=== PATIENT | male | born 1940 | race Caucasian/White ===

== ENCOUNTER 2017-08-21 10:29 | Outpatient (CLI) | payer MEDICARE, MEDICAID ==
[2017-08-21 12:02] LABS: #Basophils 0.1 thou/uL (0.0-0.2); #Monocytes 0.8 thou/uL (0.11-0.59); #Neutrophils 6.2 thou/uL (1.40-6.50); %Basophils 0.7 % (0.0-1.0); %Eosinophils 9.8 % (0.0-10.0); %Monocytes 7.9 % (0.0-10.0); %Neutrophils 61.6 % (42.0-75.0); Hemoglobin 14.4 g/dL (14.0-18.0); Mean Corpuscular HGB CONC 32.1 g/dL (32.0-36.0); Mean Corpuscular Hemoglobin 29.3 pg (27.0-31.0); Mean Corpuscular Volume 91.2 fl (80.0-94.0); Mean Platelet Volume 7.7 fL (7.4-10.4); Platelet Count 219 thou/uL (130-400); RBC Distribution Width 14.9 % (11.5-14.5); Red Blood Cell (RBC) Count 4.91 mill/uL (4.70-6.10)
[2017-08-21 12:22] LABS: Anion Gap 16 mmol/L (10-20); BUN (Urea Nitrogen) 37 mg/dL (8.4-25.7); Calc. Creatinine Clearance 0 mL/min (70-130); Calcium 9.9 mg/dL (7.8-10.44); Carbon Dioxide 24 mmol/L (23-31); Chloride 103 mmol/L (98-107); Estimated GFR-MDRD 52; Glucose 103 mg/dL (83-110); Potassium 5.1 mmol/L (3.5-5.1); Sodium 138 mmol/L (136-145)
== END 2017-08-21 10:30 | disposition home or self-care (01) ==
LOC: LABBT 10:29
PROVIDERS: ATTEND Urology
DX: Z01.812 Encounter for preprocedural laboratory examination (principal); R33.9 Retention of urine, unspecified
CPT/HCPCS: 80048; 85025

== ENCOUNTER 2017-08-29 05:30 | Observation (INO) | payer MEDICARE, MEDICAID ==
[2017-08-21 11:13] VITALS: BMI 27.2
[2017-08-29] MEDS ORDERED: cefOXitin 2 GM VIAL ONE (05:55)
[2017-08-29] MEDS ORDERED: cefOXitin 2 GM in Sodium Chloride 0.9% 100 ML IVPB SCH (06:00)
[2017-08-29] MEDS ORDERED: Fentanyl 100 MCG/2 ML VIAL ONE ×2 (06:46→10:58)
[2017-08-29] MEDS ORDERED: Dexamethasone 4 mg/ml Vial ONE (07:08)
[2017-08-29] MEDS ORDERED: B & O ONE (07:22)
[2017-08-29] MEDS ORDERED: Furosemide 20 MG/2 ML VIAL ONE (07:22)
[2017-08-29] MEDS ORDERED: Ondansetron HCl/PF 4 MG/2 ML Vial IVP PRN ×2 (11:21→12:15)
[2017-08-29] MEDS ORDERED: diphenhydrAMINE 50 MG in Sodium Chloride 0.9% 50 ML IVPB PRN (11:21)
[2017-08-29] MEDS ORDERED: Metoclopramide HCl 10 MG/2 ML VIAL IVP PRN (11:21)
[2017-08-29] MEDS ORDERED: Acetaminophen 500 MG TAB PO PRN (11:22)
[2017-08-29] MEDS ORDERED: Insulin Regular 300 UNITS/3 ML VIAL SC ONE (11:31)
[2017-08-29] MEDS ORDERED: Amlodipine 5 MG TAB PO SCH (11:45)
[2017-08-29] MEDS ORDERED: Promethazine HCl 25 MG/ML VIAL SLOW IVP PRN (12:15)
[2017-08-29] MEDS ORDERED: Promethazine HCl 25 MG/ML VIAL IM PRN (12:15)
[2017-08-29] MEDS ORDERED: PROPOFOL 200 MG/20 ML VIAL ONE (13:59)
[2017-08-29] MEDS ORDERED: Lidocaine 1% PF 5 ML VIAL ONE (13:59)
[2017-08-29] MEDS ORDERED: PHENYLEPHRINE-NS 100 MCG/ML 10 ML SYRINGE ONE (13:59)
--- NOTE | 2017-08-29 14:13 | OP ---
DATE OF SERVICE: 08/29/2017 PREOPERATIVE DIAGNOSES: Benign prostatic hypertrophy and retention status post SP tube for a prolonged period of time. POSTOPERATIVE DIAGNOSES: Benign prostatic hypertrophy and retention status post SP tube for a prolonged period of time. PROCEDURE: GreenLight laser vaporization of the prostate with enucleation of the lateral and middle lobes total of 556, 429 joules used. SPECIMENS: Prostate. COMPLICATIONS: None. However, the prostate was significantly larger than anticipated. ESTIMATED BLOOD LOSS: Minimal. COMPLICATIONS: None. DRAINS: Drain remaining was a 20 Scottish in addition to a 20 Scottish SP tube. INDICATIONS: The patient is a 77-year-old male who had SP tube for a couple years, but never had any definitive intervention for his prostate and after office cystoscopy revealing a very obstructive gland, we discussed the possibility of GreenLight in hopes that he would be able to void and ultimately remove the SP tube and so he was set up for this. PROCEDURE IN DETAIL: The patient was brought into the room by Anesthesia. Laid on the table in the supine position. After receiving general anesthetic, his legs placed in lithotomy position. Perineum was prepped and draped in sterile fashion. Prior to this, the SP tube was changed under sterile conditions from a 20 Scottish 30 mL to a 20 Scottish 5 mL catheter then a 22.5 Scottish cystoscope and 30-degree lens were used. The bladder was inspected. Initially, the ureteral orifices could not be seen without significant investigation. After further manipulation of the obstructing middle lobe, the right UO was noted. I did not see the left until midway through the case, at which time it was preserved and not anywhere in the line of resection, but the middle lobe was very elevated, not as much beyond the UO's as deep at the bladder neck, so care was taken at a power of 80 to enucleate this whole portion which was tedious given that it was intravesical. Then, once this was taken down, the power of 180 was used at the mid gland and taken all the way down to the just before the veru. However, the gland was quite tall or long from AP diameter and when the scope was removed a good stream was not noted; this seemed to be because the more anterior portions of the gland were still significantly obstructing and not easily noted initially. So a resection of these portions was then performed. There were significant chips all throughout this and the [place] [employer] evacuator was used to remove them and clot. The maximum fiber life was reached so another second fiber was used and at this point it was approaching 3 hours of resection. I felt this was probably the most that he should undergo from just general safety standpoint; clearly, a significant amount of prostate had been resected, but I never did see a good stream. The scope was put back in the bladder decompressed. Hemostasis was attempted. There was just general ooze. There was no definitive bleeder as all of these had already been stopped so at this point, the scope was removed after ensuring all chips and clot were out and a 20 Scottish catheter was placed to gravity and the CBI was hooked up to the SP tube. The patient tolerated procedure well and was then awakened and transferred to PACU in stable condition. NEREIDA
[2017-08-29] MEDS: D5 1/2 NS w/10 mEq KCl 1,000 ML/1,000 ML BAG IV SCH ×2 (15:40→22:53)
[2017-08-29] MEDS: Heparin 5,000 UNITS/ML VIAL SC SCH ×2 (16:37→21:39)
[2017-08-29] MEDS: cefOXitin 2 GM in Sodium Chloride 0.9% 100 ML IVPB SCH (21:22)
[2017-08-29] MEDS: Tamsulosin HCl 0.4 MG CAP PO SCH (21:23)
[2017-08-29] MEDS: Docusate 100 MG CAP PO SCH (21:23)
[2017-08-29] MEDS: metFORMIN XR 500 MG TAB PO SCH (21:23)
[2017-08-29] MEDS: Famotidine/PF 20 mg/2ml Vial SLOW IVP SCH (22:53)
[2017-08-30] MEDS ORDERED: Levothyroxine Sodium 100 MCG TAB PO SCH (06:00)
[2017-08-30] MEDS ORDERED: Glimepiride 1 MG TAB PO SCH (08:00)
[2017-08-30] MEDS: Tamsulosin HCl 0.4 MG CAP PO SCH (08:47)
[2017-08-30] MEDS: Famotidine/PF 20 mg/2ml Vial SLOW IVP SCH (08:47)
[2017-08-30] MEDS: metFORMIN XR 500 MG TAB PO SCH (08:48)
[2017-08-30] MEDS: Docusate 100 MG CAP PO SCH (08:48)
[2017-08-30] MEDS: Heparin 5,000 UNITS/ML VIAL SC SCH ×2 (08:48→15:14)
[2017-08-30] MEDS: cefOXitin 2 GM in Sodium Chloride 0.9% 100 ML IVPB SCH (08:49)
[2017-08-30] MEDS ORDERED: Gabapentin 300 MG CAP PO SCH (09:00)
[2017-08-30] MEDS ORDERED: Furosemide 20 MG TAB PO SCH (09:00)
[2017-08-30] MEDS ORDERED: Lisinopril 10 MG TAB PO SCH (09:00)
[2017-08-30] MEDS ORDERED: Finasteride 5 MG TAB PO SCH (09:00)
[2017-08-30 11:59] VITALS: BP 119/68; TEMP 98.4
[2017-08-30] MEDS: D5 1/2 NS w/10 mEq KCl 1,000 ML/1,000 ML BAG IV SCH (13:38)
== END 2017-08-30 15:30 ==
LOC: EDBD 05:30 → SDC 05:30 → SURG B 11:15
PROVIDERS: ADMIT Urology; ATTEND Urology
PROC: 0V507ZZ Destruction of Prostate, Via Natural or Artificial Opening (ICD-10-PCS; principal; 2017-08-29)
DX: N40.1 Benign prostatic hyperplasia with lower urinary tract symptoms (principal); R33.8 Other retention of urine; N31.9 Neuromuscular dysfunction of bladder, unspecified; N30.00 Acute cystitis without hematuria; N41.0 Acute prostatitis; K21.9 Gastro-esophageal reflux disease without esophagitis; I10 Essential (primary) hypertension; M10.9 Gout, unspecified; E11.649 Type 2 diabetes mellitus with hypoglycemia without coma; E55.9 Vitamin D deficiency, unspecified; F32.9 Major depressive disorder, single episode, unspecified; M06.9 Rheumatoid arthritis, unspecified; E03.9 Hypothyroidism, unspecified; Z79.82 Long term (current) use of aspirin; Z79.52 Long term (current) use of systemic steroids; Z79.899 Other long term (current) drug therapy; Z87.891 Personal history of nicotine dependence
CPT/HCPCS: 52648; 82962 ×2; 88305; 96361 ×2; 96365; 96375; 96376; G0378; 36416; J0694; J1100; J1644; J1940; J2001; J2704; J3010; J7050; S0028

== ENCOUNTER 2018-10-12 08:32 | Day surgery (SDC) | payer MEDICARE ==
[2018-10-11 14:38] VITALS: BMI 26.4
[2018-10-12 08:58] LABS: #Basophils 0.1 thou/uL (0.0-0.2); #Eosinphils 0.3 thou/uL (0.0-0.7); #Monocytes 0.8 thou/uL (0.11-0.59); #Neutrophils 5.7 thou/uL (1.40-6.50); %Basophils 0.7 % (0.0-1.0); %Eosinophils 3.1 % (0.0-10.0); %Lymphocytes 30.7 % (21.0-51.0); %Neutrophils 57.5 % (42.0-75.0); Hemoglobin 13.4 g/dL (14.0-18.0); Mean Corpuscular HGB CONC 32.7 g/dL (32.0-36.0); Mean Corpuscular Hemoglobin 31.6 pg (27.0-31.0); Mean Corpuscular Volume 96.6 fL (78.0-98.0); Mean Platelet Volume 7.4 fL (7.4-10.4); Platelet Count 226 thou/uL (130-400); RBC Distribution Width 13.2 % (11.5-14.5); Red Blood Cell (RBC) Count 4.24 mill/uL (4.70-6.10); White Blood Cell (WBC) Count 9.9 thou/uL (4.8-10.8)
[2018-10-12 09:04] LABS: INR-International Normal Ratio 0.9; PTT 33.9 SEC (22.9-36.1); Prothrombin Time 12.1 SEC (12.0-14.7)
--- NOTE | 2018-10-12 11:49 | CT ---
CT-guided suprapubic catheter placement Conscious sedation: At least 45 minutes spent with the patient during procedure for conscious sedatio n. HISTORY: Urinary retention. FINDINGS: After explaining the procedure and answering all questions, CT images of the pelvis were pe rformed. Sterile technique, buffered local anesthesia, conscious sedation, CT guidance, and an anterior midlin e suprapubic approach were used to carefully advance a 14 [place] Whitt catheter into the urinary bladder using trocar technique. Clear yellow urine was drained. Balloon inflated and catheter secured. Secured externally with 2-0 Et hilon suture and left draining to gravity. Patient tolerated the procedure well and was returned to the holding area in good condition for further monitoring. IMPRESSION: Technically successful CT-guided suprapubic catheter placement.
== END 2018-10-12 13:00 | disposition home or self-care (01) ==
LOC: CT 08:32 → EDSTATUS 10:00 → CT 13:00
PROVIDERS: ATTEND Urology
DX: N40.1 Benign prostatic hyperplasia with lower urinary tract symptoms (principal); R33.8 Other retention of urine; N35.919 Unspecified urethral stricture, male, unspecified site; N39.45 Continuous leakage; I10 Essential (primary) hypertension; E03.9 Hypothyroidism, unspecified; E11.649 Type 2 diabetes mellitus with hypoglycemia without coma; E55.9 Vitamin D deficiency, unspecified; D64.9 Anemia, unspecified; F32.9 Major depressive disorder, single episode, unspecified; K21.9 Gastro-esophageal reflux disease without esophagitis; M10.9 Gout, unspecified; R00.1 Bradycardia, unspecified; Z79.84 Long term (current) use of oral hypoglycemic drugs; Z79.899 Other long term (current) drug therapy; Z95.0 Presence of cardiac pacemaker; Z87.891 Personal history of nicotine dependence
CPT/HCPCS: 51102; 77002; 85025; 85610; 85730; C2627; 36415

== ENCOUNTER 2019-11-09 00:20 | Inpatient (IN) | payer MEDICAID, MEDICARE ==
[2019-11-09] MEDS ORDERED: Propofol 1,000 MG/100 ML VIAL IV ONE (01:32)
[2019-11-09 02:17] VITALS: BMI 27.0
[2019-11-09] MEDS ORDERED: Ondansetron PF 4 MG/2 ML Vial IVP PRN (02:28)
[2019-11-09] MEDS ORDERED: Acetaminophen 500 MG TAB PO PRN (02:28)
[2019-11-09] MEDS ORDERED: Ondansetron ODT 4 MG TAB PO PRN (02:28)
[2019-11-09] MEDS ORDERED: hydrALAZINE 20 MG/ML VIAL SLOW IVP PRN (02:28)
[2019-11-09] MEDS ORDERED: Dextrose 50% Abboject 50 ML SYRINGE SLOW IVP PRN (02:28)
[2019-11-09] MEDS ORDERED: Dextrose 5% in Water 1,000 ML IV PRN (02:28)
[2019-11-09] MEDS ORDERED: HumaLOG 300 UNITS/3 ML VIAL SC PRN (02:28)
[2019-11-09] MEDS ORDERED: Acetaminophen 650 MG Suppository PR PRN (02:28)
[2019-11-09] MEDS ORDERED: Ventilator Sedation Protocol FS SCH (02:50)
[2019-11-09] MEDS ORDERED: Fentanyl BOLUS 250 ML IVPB PRN (02:57)
[2019-11-09] MEDS ORDERED: fentaNYL Citrate/PF 2,000 MCG in Sodium Chloride 0.9% 60 ML IV SCH (02:57)
[2019-11-09] MEDS ORDERED: Propofol BOLUS 1,000 MG/100 ML VIAL IV PRN (02:57)
[2019-11-09] MEDS ORDERED: DISCONTINUE PREVIOUS NARCOTIC PAIN MEDICATIONS AND BENZODIAZEPINES FS SCH (02:57)
[2019-11-09] MEDS ORDERED: Norepinephrine 16 MG in Dextrose 5% in Water 234 ML IVPB SCH (03:00)
[2019-11-09] MEDS ORDERED: Norepinephrine 16 MG in Dextrose 5% in Water 234 ML IVPB PRN (03:00)
[2019-11-09] MEDS: Azithromycin 500 MG in Sodium Chloride 0.9% 250 ML 250 ML IVPB SCH (03:11)
[2019-11-09] MEDS: Sodium Chloride 0.9% 1,000 ML IV SCH ×2 (03:12→16:08)
[2019-11-09] MEDS ORDERED: Albuterol Sulfate 2.5 mg/3 ml Neb NEB PRN (03:17)
[2019-11-09] MEDS ORDERED: Albuterol Sulfate 2.5 mg/3 ml Neb NEB SCH (03:30)
--- NOTE | 2019-11-09 05:24 | HP ---
PRIMARY CARE PROVIDER: Leno Crabtree M.D. CHIEF COMPLAINT: Respiratory failure. HISTORY OF PRESENT ILLNESS: This is a 80-year-old male, who was transferred to [facility] in [place], [place] from [facility] after recent diagnosis of COVID-19 pneumonia with associated hypoxic respiratory failure. Patient became progressively short of breath with increasing oxygen requirements. Transition from nasal cannula to BiPAP noninvasive mechanical ventilation. Patient was unable to maintain O2 saturations on BiPAP, necessitating intubation and placement on mechanical ventilator. Patient did receive IV dexamethasone in addition to the first dose of Remdesivir and azithromycin. Patient was also placed on Levophed infusion due to hypotension, currently stabilized with systolics in the 110 range. The history is obtained after discussions with the transferring physician, Dr. Deondre Olson at [facility]. Patient is currently a senior living resident at [facility], who initially presented to [facility] with progressive shortness of breath and hypoxia. Patient was initially admitted on 11/06/2019 and transferred currently on 11/09/2019. Patient was also being treated for suspected urinary tract infection with Rocephin due to indwelling suprapubic catheter. Patient currently on mechanical ventilation with SIMV at 90% FiO2 with a tidal volume of 500, PEEP of 10, and respiratory rate of 18. PAST MEDICAL HISTORY: 1. Coronary artery disease. 2. Hypertension. 3. Hyperlipidemia. 4. Gastroesophageal reflux disease. 5. Benign prostatic hyperplasia with obstructive uropathy status post suprapubic catheter placement. 6. Diabetes mellitus type 2. 7. Hypothyroidism. 8. Gout. 9. Chronic anemia. 10. Vitamin D deficiency. 11. Major depressive disorder. 12. Rheumatoid arthritis. PAST SURGICAL HISTORY: 1. Status post suprapubic catheter placement. 2. Status post pacemaker placement. 3. Status post left total hip arthroplasty. CURRENT MEDICATIONS: 1. Amlodipine 2.5 mg p.o. daily. 2. Vitamin C 500 mg p.o. daily. 3. Enteric-coated aspirin 81 mg p.o. daily. 4. Vitamin D3 2000 units p.o. daily. 5. Colace 100 mg p.o. b.i.d. p.r.n. 6. Ferrous sulfate 325 mg p.o. daily. 7. Finasteride 5 mg p.o. daily. 8. Lasix 20 mg p.o. daily. 9. Gabapentin 300 mg p.o. daily. 10. Amaryl 1 mg p.o. daily. 11. Levothyroxine 100 mcg p.o. daily. 12. Lisinopril 10 mg p.o. b.i.d. 13. Protonix 40 mg p.o. daily. 14. Zoloft 100 mg p.o. daily. ALLERGIES: NO KNOWN DRUG ALLERGIES. FAMILY HISTORY: Father at 81 years of age with coronary artery disease. Mother at 94 years of age. SOCIAL HISTORY: Resides at [facility]. No current alcohol, tobacco, or illicit drug use. Bedbound status. REVIEW OF SYSTEMS: Unable to obtain due to the patient's mechanical ventilation and sedation. PHYSICAL EXAMINATION: VITAL SIGNS: Currently, blood pressure 127/67, pulse 60, respiratory rate 18 to 20, temperature 97.8 degrees Fahrenheit, O2 saturation 100% on SIMV with FiO2 of 90%. GENERAL APPEARANCE: This is a 80-year-old male, sedate on current mechanical ventilation in the Critical Care Unit. HEENT: Pupils are minimally reactive to light and accommodation. Mild conjunctival injection with nares patent. OP with ET tube and orogastric tube in place. NECK: Supple. No cervical adenopathy. No thyromegaly. No carotid bruits. No JVD appreciated. No meningeal signs noted. CHEST: Diminished breath sounds bilaterally with occasional expiratory wheeze. CARDIOVASCULAR: S1, S2 with distant heart sounds. Left-sided pacemaker device in place. ABDOMEN: Rounded, soft, nontender, nondistended. Bowel sounds positive in all 4 quadrants. Suprapubic catheter in place without purulence or erythema at the skin interface. EXTREMITIES: Warm and dry with fair turgor. Ecchymosis of the ankle and left henry region noted. Pulses diminished, but palpable at the dorsalis pedis, posterior tibial, and popliteal arteries bilaterally. Deformities noted of the toes and ankle region bilaterally. NEUROLOGIC: Sedate on mechanical ventilation. PERTINENT LABORATORY AND X-RAY FINDINGS: Sodium 145, potassium 4.3, chloride 108, CO2 of 25, BUN 37, creatinine 1.25. Estimated GFR 56, glucose 178, calcium 8.5, ferritin 2020, lactate dehydrogenase 584, total CK of 223. CRP 13.61. BNP 256. TSH 3.27. CBC showed a white blood cell count of 10.7, hemoglobin 13, hematocrit 39, and platelet count 209 with 80% neutrophilia. D-dimer 3.71. ABG dated 11/08/2019 showed a pH of 7.35, pCO2 of 36, pO2 of 124, bicarb 19.1, FiO2 of 100%. Portable chest x-ray dated 11/08/2019 showed diffuse bilateral pulmonary infiltrates. Endotracheal tube in appropriate positioning with tip above the rasheeda. Left-sided dual chamber pacemaker device in place. Right internal jugular central venous catheter in appropriate positioning. Telemetry shows paced rhythm with heart rates in the 60s. ASSESSMENT AND PLAN: 1. Coronavirus pneumonia. Patient will be admitted to the Critical Care Unit. We will continue general pulmonary supportive management. Zithromax 500 mg IV daily with additional Rocephin 2 g IV q.24 hours. Continue Remdesivir 100 mg IV daily. Consult Pulmonology Critical Care Service in the a.m. Add albuterol 2 puffs q.4 hours. 2. Acute hypoxic respiratory failure secondary to coronavirus pneumonia. See #1 above for management options. Continue mechanical ventilation with SIMV titrating to clinical response. Continue dexamethasone 10 mg IV b.i.d. 3. Hypotension. Suspect iatrogenic in conjunction with coronavirus pneumonia. Continue Levophed to titrate to systolic blood pressure greater than or equal to 100. Continue intravenous normal saline at 75 mL/hour. 4. Diabetes mellitus type 2. Insulin sliding scale for reflexive coverage. Serial Accu-Cheks. ADA diet when tolerating p.o. intake. 5. Hypothyroidism. Resume levothyroxine 100 mcg p.o. daily. 6. Prophylaxis. SCDs while in bed. Pepcid 20 mg p.o. b.i.d. Respiratory isolation. 7. Code status is full. Surrogate medical decision maker is not identified. Job ID: [id number]
[2019-11-09] MEDS: Levothyroxine Sodium 100 MCG TAB PO SCH (05:36)
[2019-11-09] MEDS: cefTRIAXone\\ROCEPHIN 2 GM in Sodium Chloride 0.9% 100 ML IVPB SCH (05:36)
[2019-11-09] MEDS: HumaLOG 300 UNITS/3 ML VIAL SC PRN ×3 (05:36→17:46)
[2019-11-09] MEDS: Propofol 1,000 MG/100 ML VIAL IV PRN ×4 (05:55→21:17)
[2019-11-09 07:18] LABS: Actual Bicarbonate (HCO3a) 18.5 mEq/L (22-28); Base Excess (BEa) -5.3 mEq/L (-2.0 to +3.0); CO2 Tension 30.8 mmHg (35.0-45.0); Calcium, Ionized (arterial) 1.13 mmol/L (1.12-1.30); Carboxyhemoglobin (COHb) 0.3 gm% (0.0-3.0); Hemoglobin (Hb) 12.5 g/dL (14.0-18.0); O2 Tension (PaO2), arterial 138.9 mmHg (> 70.0); Potassium - ABG Lab 3.76 mmol/L (3.70-5.30)
[2019-11-09 07:50] LABS: Puncture Site RRAD
--- NOTE | 2019-11-09 07:54 | RAD ---
CHEST 1 VIEW: INDICATION: History of intubation, central line placement, and COVID pneumonia. COMPARISON: Prior exam dated 11/08/2019 from [facility]. IMPRESSION: Bilateral airspace disease is stable. Right internal jugular central venous catheter, endotracheal t ube, and gastric catheter are similar-appearing. Cardiomegaly is stable-appearing. Small bilateral pleural effusions are stable. No pneumothorax is evident. Dual-lead pacemaker is stable. POS: BH
[2019-11-09] MEDS: Zinc Sulfate 220 MG CAP PER TUBE SCH (08:20)
[2019-11-09] MEDS: Gabapentin 300 MG CAP PO SCH (08:20)
[2019-11-09] MEDS: Enoxaparin Sodium 40 MG/0.4 ML SYRINGE SC SCH (08:20)
[2019-11-09] MEDS: Ascorbic Acid 500 mg Chewable Tablet PER TUBE SCH (08:20)
[2019-11-09] MEDS ORDERED: Prevnar 13-Val Conj/PF 0.5 ML SYRINGE IM ONE (09:00)
[2019-11-09] MEDS ORDERED: Dexamethasone 4 mg/ml Vial SLOW IVP SCH (09:00)
[2019-11-09] MEDS ORDERED: Famotidine/PF 20 mg/2ml Vial SLOW IVP SCH (09:00)
[2019-11-09] MEDS ORDERED: Dexamethasone 6 MG in Sodium Chloride 0.9% 50 ML IVPB SCH (09:15)
--- NOTE | 2019-11-09 09:52 | CON ---
DATE OF CONSULTATION: 11/09/2019 TIME SPENT: 45 minutes critical care time. CONSULTING PHYSICIAN: Dr. Boles from the Hospitalist Group. HISTORY OF THE PRESENT ILLNESS: We have been asked to see Mr. Mukherjee, who is a 80-year-old group home patient, who was initially admitted to the [facility] on 11/06/2019, after presenting with cough, shortness of breath and altered mental status. Eventually diagnosed with COVID-19 pneumonia. He has had progressive respiratory failure to the point where it was felt he needed to be intubated last night and he was subsequently transferred to this facility for further pulmonary care. PAST MEDICAL HISTORY: 1. Coronary artery disease. 2. Diabetes mellitus, type 2. 3. Pacemaker placement. 4. Hypertension. 5. Hyperlipidemia. 6. Gastroesophageal reflux. 7. Benign prostatic hypertrophy. 8. Obstructive uropathy. 9. Suprapubic catheter placement. 10. Hypothyroidism. SOCIAL HISTORY: Apparently was never a smoker. Does not consume alcohol. Lives in the [facility]. CURRENT MEDICATIONS: Reviewed. See chart. Family history unremarkable. ALLERGIES: NONE. REVIEW OF SYSTEMS: Unobtainable because the patient is on mechanical ventilation. PHYSICAL EXAMINATION: VITAL SIGNS: Heart rate 67, blood pressure 138/72, O2 saturation 97%, respiratory rate 18, and his temperature is 97.9. This patient is intubated and sedated. He is in the supine position. HEENT: He has dysconjugate gaze slightly to the right. Oropharynx has an ET tube in place. NECK: No adenopathy or JVD. LUNGS: Crackles bilaterally. CARDIOVASCULAR: S1 and S2 paced. ABDOMEN: Soft and nontender. There is a suprapubic catheter placed. EXTREMITIES: He has some purple discoloration toward his heels and ankles bilaterally. He has contracted lower extremities. LABORATORY DATA: His ferritin 1790. C-reactive protein 14.4. PH 7.4, pCO2 of 30, pO2 of 130 on SIMV rate 18, tidal volume 500, PEEP 10, pressure support 10, and FiO2 of 80%. White blood cell count 10.7, hematocrit 39.3, and platelet count 209. Sodium 145, potassium 4.3, chloride 108, CO2 of 25, BUN 37, creatinine 1.2, glucose 241. IMAGING DATA: Chest x-ray shows bilateral infiltrates. ET tube in good position. ASSESSMENT: 1. COVID-19 pneumonia. 2. Acute respiratory failure secondary to COVID-19 pneumonia. 3. Advanced age with multitude of chronic medical problems. RECOMMENDATIONS: 1. I have weaned the FiO2 on the ventilator. 2. Add Pulmicort nebs. 3. He has been started on remdesivir. I will go ahead and see if we can find some convalescent plasma. I do not think he is in need of tocilizumab at this point, but that will be reserved for later if he enters a cytokine storm. He has been started on Decadron, but I will adjust the dose to 6 mg IV daily that is recommended currently. Given the patient's age and comorbidities, his prognosis is extremely poor for functional recovery. Job ID: [id number]
--- NOTE | 2019-11-09 12:37 | PDOC.HOSPP ---
- Subjective Encounter Date: 11/09/19 Encounter Time: 08:45 Subjective: is on vent, sedated not in distress - Objective Vital Signs & Weight: Vital Signs (12 hours) Temp Pulse Resp BP Pulse Ox 11/09/19 12:00 18 11/09/19 10:15 60 11/09/19 10:00 18 11/09/19 08:02 62 11/09/19 08:00 18 11/09/19 07:00 97.4 F L 11/09/19 06:00 18 11/09/19 05:31 60 18 100 11/09/19 04:00 97.9 F 18 11/09/19 02:28 100 11/09/19 02:12 65 127/67 11/09/19 02:00 97.8 F 18 Weight Weight 172 lb 9.951 oz Most Recent Monitor Data Heart Rate from ECG 63 NIBP 124/76 NIBP BP-Mean 92 Respiration from ECG 18 SpO2 98 I&O: 11/08/19 11/09/19 11/10/19 06:59 06:59 06:59 Intake Total 629.9 60 Output Total 575 160 Balance 54.9 -100 Additional Labs: Accuchecks 11/09/19 11/09/19 10:51 03:33 POC Glucose 209 H 241 H Hospitalist ROS - Medication Medications: Active Medications Generic Name Dose Route Start Last Admin Trade Name Freq PRN Reason Stop Dose Admin Ascorbic Acid 1,000 mg 11/09/19 09:00 11/09/19 08:20 Vitamin C PER TUBE 1,000 mg DAILY RUDY Administration Enoxaparin Sodium 40 mg 11/09/19 09:00 11/09/19 08:20 Lovenox SC 40 mg 0900 RUDY Administration Famotidine 20 mg 11/09/19 09:00 11/09/19 08:19 Pepcid SLOW IVP 20 mg Q12HR RUDY Administration Gabapentin 300 mg 11/09/19 09:00 11/09/19 08:20 Neurontin PO 300 mg DAILY RUDY Administration Azithromycin 500 mg/ Sodium 250 mls @ 250 mls/hr 11/09/19 03:00 11/09/19 03: 11 Chloride IVPB 250 mls Q24HR RUDY Administration Ceftriaxone Sodium 2 gm/ 100 mls @ 200 mls/hr 11/09/19 06:00 11/09/19 05:36 Sodium Chloride IVPB 100 mls Q24HR RUDY Administration Sodium Chloride 1,000 mls @ 75 mls/hr 11/09/19 02:28 11/09/19 03:12 Normal Saline 0.9% IV 1,000 mls .[id number] RUDY Administration Norepinephrine Bitartrate 16 250 mls @ 0 mls/hr 11/09/19 03:00 11/09/19 03:11 mg/ Dextrose/Water IVPB 250 mls INF PRN Administration . Protocol Titrate Insulin Human Lispro 0 units 11/09/19 02:28 11/09/19 10:48 Humalog SC 4 unit .MODERATE SLIDING SC PRN Administration Moderate Correctional Scale Levothyroxine Sodium 100 mcg 11/09/19 06:00 11/09/19 05:36 Synthroid PO 100 mcg 0600 RUDY Administration Propofol 1,000 mg 11/09/19 02:57 11/09/19 11:19 Diprivan IV 12/09/19 02:57 1,000 mg INF PRN Administration TO ACHIEVE GOAL RASS Protocol Zinc Sulfate 220 mg 11/09/19 09:00 11/09/19 08:20 Zinc Sulfate PER TUBE 220 mg DAILY RUDY Administration - Exam General Appearance: ill appearing Eye: PERRL, anicteric sclera ENT: no oropharyngeal lesions, dry oral mucosa Neck: supple, no JVD Heart: RRR, no murmur Respiratory: no wheezes, rales, rhonchi Gastrointestinal: soft, non-tender, non-distended, normal bowel sounds Extremities: no cyanosis, no edema Extremities - other findings: left knee has extreme valgus deformity Neurological: cranial nerve grossly intact, no focal deficits Hosp A/P (1) Acute respiratory failure with hypoxia Code(s): J96.01 - ACUTE RESPIRATORY FAILURE WITH HYPOXIA Status: Acute (2) Pneumonia due to COVID-19 virus Code(s): U07.1 - COVID-19; J12.89 - OTHER VIRAL PNEUMONIA Status: Acute (3) Chronic suprapubic catheter Code(s): Z93.59 - OTHER CYSTOSTOMY STATUS Status: Chronic (4) DM type 2 (diabetes mellitus, type 2) Status: Chronic Qualifiers: Diabetes mellitus shelter insulin use: without assistant terminal manager use Diabetes mellitus complication status: with other specified complication Qualified Code (s): E11.69 - Type 2 diabetes mellitus with other specified complication (5) CAD (coronary artery disease) Code(s): I25.10 - ATHSCL HEART DISEASE OF [place] CORONARY ARTERY W/O ANG PCTRS Status: Chronic Qualifiers: Coronary Disease-Associated Artery/Lesion type: [place] artery [place] vs. transplanted heart: [place] heart Associated angina: without angina Qualified Code(s): I25.10 - Atherosclerotic heart disease of [place] coronary artery without angina pectoris (6) Hypothyroidism Code(s): E03.9 - HYPOTHYROIDISM, UNSPECIFIED Status: Chronic Qualifiers: Hypothyroidism type: acquired Qualified Code(s): E03.9 - Hypothyroidism, unspecified (7) HTN (hypertension) Code(s): I10 - ESSENTIAL (PRIMARY) HYPERTENSION Status: Chronic Qualifiers: Hypertension type: essential hypertension Qualified Code(s): I10 - Essential (primary) hypertension - Plan is getting remdesivir, dexamethasone and likely convalescent plasma nebs, gentle iv hydration, synthroid ceftriaxone and zithromax, may dc these if ok with d/w [place] over phone, gave full updates, she does not want cpr done, to continue vent and see if he can come out of it If he is getting worse on the vent she is open for further discussion including hospice etc prognosis guarded likely has underlying rheumatoid arthritis, will need to confirm if he is on any meds for it is currently a residen to [facility], not sure if he ambulates with his extreme valgus left knee
[2019-11-09 13:28] LABS: Hemoglobin 11.8 g/dL (14.0-18.0)
[2019-11-09] MEDS: Budesonide 0.5 MG/2 ML NEB INH SCH (18:47)
[2019-11-09] MEDS: Pantoprazole 40 MG VIAL IVP SCH (21:21)
[2019-11-09 21:45] LABS: Hemoglobin 11.8 g/dL (14.0-18.0)
[2019-11-10 01:26] LABS: #Lymphocytes 0.6 thou/uL (1.20-3.40); #Monocytes 0.4 thou/uL (0.11-0.59); #Neutrophils 7.5 thou/uL (1.40-6.50); %Eosinophils 0.2 % (0.0-10.0); %Lymphocytes 7.1 % (21.0-51.0); %Monocytes 4.9 % (0.0-10.0); %Neutrophils 87.8 % (42.0-75.0); Hemoglobin 10.9 g/dL (14.0-18.0); Mean Corpuscular HGB CONC 32.6 g/dL (32.0-36.0); Mean Corpuscular Hemoglobin 30.9 pg (27.0-31.0); Mean Corpuscular Volume 94.8 fL (78.0-98.0); Mean Platelet Volume 8.4 fL (7.4-10.4); Platelet Count 199 thou/uL (130-400); Red Blood Cell (RBC) Count 3.54 mill/uL (4.70-6.10); White Blood Cell (WBC) Count 8.5 thou/uL (4.8-10.8)
[2019-11-10] MEDS: Azithromycin 500 MG in Sodium Chloride 0.9% 250 ML 250 ML IVPB SCH (02:45)
[2019-11-10] MEDS: Propofol 1,000 MG/100 ML VIAL IV PRN ×4 (02:47→17:00)
[2019-11-10 03:49] LABS: Anion Gap 12 mmol/L (10-20); BUN (Urea Nitrogen) 36 mg/dL (8.4-25.7); Calc. Creatinine Clearance 75 mL/min (70-130); Calcium 7.9 mg/dL (7.8-10.44); Carbon Dioxide 21 mmol/L (23-31); Chloride 117 mmol/L (98-107); Estimated GFR-MDRD 82; Glucose 171 mg/dL (83-110); Potassium 3.7 mmol/L (3.5-5.1); Sodium 146 mmol/L (136-145)
[2019-11-10] MEDS: HumaLOG 300 UNITS/3 ML VIAL SC PRN ×2 (04:54→22:22)
[2019-11-10] MEDS: Sodium Chloride 0.9% 1,000 ML IV SCH ×2 (04:57→19:16)
[2019-11-10] MEDS: cefTRIAXone\\ROCEPHIN 2 GM in Sodium Chloride 0.9% 100 ML IVPB SCH (05:00)
[2019-11-10] MEDS: Levothyroxine Sodium 100 MCG TAB PO SCH (05:01)
[2019-11-10] MEDS: Budesonide 0.5 MG/2 ML NEB INH SCH ×2 (07:00→19:43)
[2019-11-10 07:37] LABS: Actual Bicarbonate (HCO3a) 19.9 mEq/L (22-28); Base Excess (BEa) -3.9 mEq/L (-2.0 to +3.0); CO2 Tension 32.1 mmHg (35.0-45.0); Calcium, Ionized (arterial) 1.16 mmol/L (1.12-1.30); Carboxyhemoglobin (COHb) 0.3 gm% (0.0-3.0); Hemoglobin (Hb) 11.1 g/dL (14.0-18.0); Potassium - ABG Lab 3.54 mmol/L (3.70-5.30); pH, Arterial 7.41 (7.35-7.45)
--- NOTE | 2019-11-10 08:07 | RAD ---
SINGLE VIEW OF THE CHEST: INDICATION: History of pneumonia. COMPARISON: Prior exam dated 11/09/2019. IMPRESSION: ET tube, gastric catheter, and right internal jugular central venous catheter are unchanged. Pacemak er is similar-appearing. Parenchymal opacities involving both lungs are stable-appearing. No pneumo thorax is evident. Tiny bilateral pleural effusions are stable-appearing. POS: BH
[2019-11-10] MEDS ORDERED: Dexamethasone 6 MG in Sodium Chloride 0.9% 50 ML IVPB SCH (09:00)
[2019-11-10 09:08] LABS: ALV-art Gradient 309.675 (0-20); Puncture Site L.R.
[2019-11-10] MEDS: Gabapentin 300 MG CAP PO SCH (09:09)
[2019-11-10] MEDS: Zinc Sulfate 220 MG CAP PER TUBE SCH (09:09)
[2019-11-10] MEDS: Ascorbic Acid 500 mg Chewable Tablet PER TUBE SCH (09:09)
[2019-11-10] MEDS: Enoxaparin Sodium 40 MG/0.4 ML SYRINGE SC SCH (09:10)
[2019-11-10] MEDS: Pantoprazole 40 MG VIAL IVP SCH ×2 (09:20→22:08)
--- NOTE | 2019-11-10 09:36 | PRG ---
DATE OF SERVICE: 11/10/2019 A 35 minutes of critical care time. SUBJECTIVE: The patient remains intubated on mechanical ventilation. He does not follow any commands. He does become unruly when the sedation is let up. OBJECTIVE: VITAL SIGNS: His temperature is 97.7, pulse 65, blood pressure 130/82, and O2 saturation 98%. A 24-hour intake 2630 and output 1100. HEENT: Unremarkable. NECK: No adenopathy or JVD. LUNGS: Inspiratory crackles. CARDIAC: S1 and S2. Regular. ABDOMEN: Soft. EXTREMITIES: No edema. LABORATORY DATA: White blood cell count 8.5, hematocrit 33.6, and platelet count 199. A pH of 7.41, pCO2 of 32, pO2 of 78, and AA gradient 309. Currently on SIMV rate 18, tidal volume 500, PEEP 10, pressure support 10, and FiO2 of 60%, I have lowered FiO2 to 50%. Chest x-ray shows no change in the subtle bilateral infiltrates. ASSESSMENT: 1. COVID-19 pneumonia with acute respiratory failure requiring mechanical ventilation. 2. Advanced age with multiple chronic medical problems. PLAN: The patient has received convalescent plasma and is currently on steroids. He has been weaned off the Levophed drip. We will start enteral tube feeds today. His prognosis remains very poor for functional recovery. Job ID: [id number]
--- NOTE | 2019-11-10 10:42 | PDOC.HOSPP ---
- Subjective Encounter Date: 11/10/19 Encounter Time: 10:30 Subjective: on vent, sedated not in distress - Objective Vital Signs & Weight: Vital Signs (12 hours) Temp Pulse Resp BP Pulse Ox 11/10/19 07:00 66 18 97 11/10/19 06:00 18 11/10/19 04:00 97.7 F 18 11/10/19 02:36 60 110/68 11/10/19 02:00 18 11/10/19 00:00 97.4 F L 18 Weight Admit Weight 172 lb Weight 172 lb 9.951 oz Most Recent Monitor Data Heart Rate from ECG 65 NIBP 130/82 NIBP BP-Mean 98 Respiration from ECG 18 SpO2 98 I&O: 11/09/19 11/10/19 11/11/19 06:59 06:59 06:59 Intake Total 629.9 2630.6 Output Total 575 1100 Balance 54.9 1530.6 Result Diagrams: 11/10/19 01:10 11/10/19 03:05 Additional Labs: Accuchecks 11/09/19 10:51 POC Glucose 209 H Hospitalist ROS - Medication Medications: Active Medications Generic Name Dose Route Start Last Admin Trade Name Freq PRN Reason Stop Dose Admin Ascorbic Acid 1,000 mg 11/09/19 09:00 11/10/19 09:09 Vitamin C PER TUBE 1,000 mg DAILY RUDY Administration Budesonide 0.5 mg 11/09/19 18:30 11/10/19 07:00 Pulmicort Neb Solution INH 0.5 mg BID-RT RUDY Administration Enoxaparin Sodium 40 mg 11/09/19 09:00 11/10/19 09:10 Lovenox SC 40 mg 0900 RUDY Administration Gabapentin 300 mg 11/09/19 09:00 11/10/19 09:09 Neurontin PO 300 mg DAILY RUDY Administration Azithromycin 500 mg/ Sodium 250 mls @ 250 mls/hr 11/09/19 03:00 11/10/19 02: 45 Chloride IVPB 250 mls Q24HR RUDY Administration Ceftriaxone Sodium 2 gm/ 100 mls @ 200 mls/hr 11/09/19 06:00 11/10/19 05:00 Sodium Chloride IVPB 100 mls Q24HR RUDY Administration Sodium Chloride 1,000 mls @ 75 mls/hr 11/09/19 02:28 11/10/19 04:57 Normal Saline 0.9% IV 1,000 mls .[id number] RUDY Administration Norepinephrine Bitartrate 16 250 mls @ 0 mls/hr 11/09/19 03:00 11/09/19 03:11 mg/ Dextrose/Water IVPB 250 mls INF PRN Administration . Protocol Titrate Dexamethasone 6 mg/ Sodium 50.6 mls @ 100 mls/hr 11/10/19 09:00 11/10/19 09: 15 Chloride IVPB 50.6 mls DAILY RUDY Administration Insulin Human Lispro 0 units 11/09/19 02:28 11/10/19 04:54 Humalog SC 2 unit .MODERATE SLIDING SC PRN Administration Moderate Correctional Scale Levothyroxine Sodium 100 mcg 11/09/19 06:00 11/10/19 05:01 Synthroid PO 100 mcg 0600 RUDY Administration Pantoprazole Sodium 40 mg 11/09/19 21:00 11/10/19 09:20 Protonix IVP 40 mg Q12HR RUDY Administration Propofol 1,000 mg 11/09/19 02:57 11/10/19 07:30 Diprivan IV 12/09/19 02:57 1,000 mg INF PRN Administration TO ACHIEVE GOAL RASS Protocol Zinc Sulfate 220 mg 11/09/19 09:00 11/10/19 09:09 Zinc Sulfate PER TUBE 220 mg DAILY RUDY Administration - Exam General Appearance: ill appearing Eye: PERRL, anicteric sclera ENT: no oropharyngeal lesions, dry oral mucosa Neck: supple, no JVD Heart: RRR, no murmur Respiratory: no wheezes, rales, rhonchi Gastrointestinal: soft, non-tender, non-distended, normal bowel sounds Extremities: no cyanosis, 1+ LE edema Neurological: cranial nerve grossly intact, no focal deficits Hosp A/P (1) Acute respiratory failure with hypoxia Code(s): J96.01 - ACUTE RESPIRATORY FAILURE WITH HYPOXIA Status: Acute (2) Pneumonia due to COVID-19 virus Code(s): U07.1 - COVID-19; J12.89 - OTHER VIRAL PNEUMONIA Status: Acute (3) Chronic suprapubic catheter Code(s): Z93.59 - OTHER CYSTOSTOMY STATUS Status: Chronic (4) DM type 2 (diabetes mellitus, type 2) Status: Chronic Qualifiers: Diabetes mellitus terminal gauger insulin use: without terminal gauger use Diabetes mellitus complication status: with other specified complication Qualified Code (s): E11.69 - Type 2 diabetes mellitus with other specified complication (5) CAD (coronary artery disease) Code(s): I25.10 - ATHSCL HEART DISEASE OF [place] CORONARY ARTERY W/O ANG PCTRS Status: Chronic Qualifiers: Coronary Disease-Associated Artery/Lesion type: [place] artery [place] vs. transplanted heart: [place] heart Associated angina: without angina Qualified Code(s): I25.10 - Atherosclerotic heart disease of [place] coronary artery without angina pectoris (6) Hypothyroidism Code(s): E03.9 - HYPOTHYROIDISM, UNSPECIFIED Status: Chronic Qualifiers: Hypothyroidism type: acquired Qualified Code(s): E03.9 - Hypothyroidism, unspecified (7) HTN (hypertension) Code(s): I10 - ESSENTIAL (PRIMARY) HYPERTENSION Status: Chronic Qualifiers: Hypertension type: essential hypertension Qualified Code(s): I10 - Essential (primary) hypertension - Plan is on remdesivir, dexamethasone and got convalescent plasma x1 nebs, gentle iv hydration, synthroid ceftriaxone and zithromax, may dc these if ok with d/w [place] over phone, gave full updates, she does not want cpr done, to continue vent and see if he can come out of it (11/09/2019) If he is getting worse on the vent she is open for further discussion including hospice etc prognosis guarded likely has underlying rheumatoid arthritis is currently a resident of [facility], not sure if he ambulates with his extreme valgus left knee
[2019-11-10] MEDS: Lorazepam 2 MG/ML VIAL SLOW IVP PRN (13:51)
[2019-11-10 23:47] VITALS: BP 122/69
[2019-11-11] MEDS: Propofol 1,000 MG/100 ML VIAL IV PRN ×3 (04:12→21:12)
[2019-11-11] MEDS: Azithromycin 500 MG in Sodium Chloride 0.9% 250 ML 250 ML IVPB SCH (04:12)
[2019-11-11] MEDS: cefTRIAXone\\ROCEPHIN 2 GM in Sodium Chloride 0.9% 100 ML IVPB SCH (05:13)
[2019-11-11] MEDS: Levothyroxine Sodium 100 MCG TAB PO SCH (05:13)
[2019-11-11 05:14] LABS: Anion Gap 11 mmol/L (10-20); BUN (Urea Nitrogen) 37 mg/dL (8.4-25.7); CRP (Inflammatory) 6.74 mg/dL (= or < 0.5); Calc. Creatinine Clearance 73 mL/min (70-130); Calcium 7.6 mg/dL (7.8-10.44); Carbon Dioxide 21 mmol/L (23-31); Chloride 116 mmol/L (98-107); Estimated GFR-MDRD 80; Glucose 140 mg/dL (83-110); Potassium 3.4 mmol/L (3.5-5.1); Sodium 145 mmol/L (136-145)
[2019-11-11 05:16] LABS: Band 6 % (5-11); Hemoglobin 10.6 g/dL (14.0-18.0); Hypochromia SLIGHT = 6-15 cells (100X) (0-5/hpf); Lymphocytes 2 % (21-51); MDiff Complete? YES; Mean Corpuscular Hemoglobin 30.3 pg (27.0-31.0); Mean Corpuscular Volume 94.7 fL (78.0-98.0); Mean Platelet Volume 8.3 fL (7.4-10.4); Monocytes 6 % (0-10); Neutrophil 86 % (42-75); Platelet Count 223 thou/uL (130-400); Platelet Morphology Comment Appears Adequate; White Blood Cell (WBC) Count 11.4 thou/uL (4.8-10.8)
[2019-11-11] MEDS: Budesonide 0.5 MG/2 ML NEB INH SCH ×2 (07:00→18:56)
--- NOTE | 2019-11-11 07:16 | RAD ---
CHEST 1 VIEW: Date: 11/11/2019 INDICATION: History of pneumonia, mechanical ventilation. COMPARISON: Prior exam dated 11/10/2019. IMPRESSION: Bilateral air space disease is stable appearing. ET tube, gastric catheter, and right IJ central veno us catheter is unchanged. Dual lead pacemaker is unchanged. No pneumothorax is evident. POS: BH
[2019-11-11 07:17] LABS: Actual Bicarbonate (HCO3a) 19.3 mEq/L (22-28); Base Excess (BEa) -3.7 mEq/L (-2.0 to +3.0); CO2 Tension 28.4 mmHg (35.0-45.0); Calcium, Ionized (arterial) 1.14 mmol/L (1.12-1.30); Carboxyhemoglobin (COHb) 0.4 gm% (0.0-3.0); Potassium - ABG Lab 3.29 mmol/L (3.70-5.30); pH, Arterial 7.45 (7.35-7.45)
[2019-11-11 07:21] LABS: O2 Tension (PaO2), arterial 54.5 mmHg (> 70.0); Puncture Site RRA
[2019-11-11] MEDS: Pantoprazole 40 MG VIAL IVP SCH ×2 (08:29→21:12)
[2019-11-11] MEDS: Enoxaparin Sodium 40 MG/0.4 ML SYRINGE SC SCH ×2 (08:29→21:12)
[2019-11-11] MEDS: Ascorbic Acid 500 mg Chewable Tablet PER TUBE SCH (08:30)
[2019-11-11] MEDS: Gabapentin 300 MG CAP PO SCH (08:30)
[2019-11-11] MEDS: Zinc Sulfate 220 MG CAP PER TUBE SCH (08:30)
--- NOTE | 2019-11-11 08:31 | PRG ---
DATE OF SERVICE: 11/11/2019 TIME SPENT: 35 minutes of critical care time. SUBJECTIVE: Mr. Mukherjee remains intubated on mechanical ventilation. There have been no change in his condition overnight. OBJECTIVE: VITAL SIGNS: On exam, temperature 97.7, pulse 63, blood pressure 114/69, and O2 saturation 93%. He is currently not requiring vasopressors. Intake has been 3402, output 1190. HEENT: Unremarkable, except for heavy secretions. NECK: No JVD. CHEST: Coarse breath sounds. CARDIAC: S1 and S2. Regular. ABDOMEN: Soft. EXTREMITIES: Some bruising around his ankles. LABORATORY DATA: ABG; pH of 7.45, pCO2 of 28, pO2 of 54 on SIMV rate 18, tidal volume 500, PEEP 10, pressure support 10, and FiO2 of 50%. White blood cell count 11.4, hematocrit 33.1, and platelet count 223. D-dimer is greater than 20. Sodium 145, potassium 3.4, chloride 116, CO2 of 21, BUN 37, creatinine 0.9, and glucose 140. Ferritin 1105. C-reactive protein 6.74. IMAGING DATA: Chest x-ray continues to show bilateral infiltrates. ET tube in good position. Central line in good position. ASSESSMENT: 1. COVID-19 pneumonia with acute respiratory failure, requiring mechanical ventilation. 2. Advanced age with many chronic medical problems. 3. Slowly improving anti-inflammatory profile. PLAN: 1. I doubt seriously he is going to survive this. He is now a DNR. I am not sure what the family situation is. We will try to make contact with them. 2. Not weanable from mechanical ventilation at this time. 3. Continue steroids, mechanical ventilation. Job ID: [id number]
[2019-11-11] MEDS: Dexamethasone 6 MG in Sodium Chloride 0.9% 50 ML IVPB SCH (08:33)
[2019-11-11] MEDS: Sodium Chloride 0.9% 1,000 ML IV SCH ×2 (13:08→21:12)
--- NOTE | 2019-11-11 14:52 | PDOC.HOSPP ---
- Subjective Encounter Date: 11/11/19 Encounter Time: 12:25 Subjective: is on vent, sedated not awake - Objective Vital Signs & Weight: Vital Signs (12 hours) Temp Pulse Resp Pulse Ox 11/11/19 14:18 95 11/11/19 14:00 22 H 11/11/19 12:00 97.7 F 21 H 11/11/19 10:12 67 11/11/19 10:00 22 H 11/11/19 08:00 97.7 F 24 H 96 11/11/19 07:00 63 11/11/19 06:00 22 H 11/11/19 04:17 60 11/11/19 04:00 97.7 F 18 Weight Admit Weight 172 lb Weight 172 lb 9.951 oz Most Recent Monitor Data Heart Rate from ECG 67 NIBP 119/67 NIBP BP-Mean 84 Respiration from ECG 22 SpO2 98 I&O: 11/10/19 11/11/19 11/12/19 06:59 06:59 06:59 Intake Total 2630.6 3402 120 Output Total 1100 1190 245 Balance 1530.6 2212 -125 Result Diagrams: 11/11/19 04:05 11/11/19 04:05 Additional Labs: Accuchecks 11/11/19 11/10/19 09:53 22:21 POC Glucose 128 H 208 H Hospitalist ROS - Medication Medications: Active Medications Generic Name Dose Route Start Last Admin Trade Name Freq PRN Reason Stop Dose Admin Ascorbic Acid 1,000 mg 11/09/19 09:00 11/11/19 08:30 Vitamin C PER TUBE 1,000 mg DAILY RUDY Administration Budesonide 0.5 mg 11/09/19 18:30 11/11/19 07:00 Pulmicort Neb Solution INH 0.5 mg BID-RT RUDY Administration Gabapentin 300 mg 11/09/19 09:00 11/11/19 08:30 Neurontin PO 300 mg DAILY RUDY Administration Sodium Chloride 1,000 mls @ 75 mls/hr 11/09/19 02:28 11/11/19 13:08 Normal Saline 0.9% IV 1,000 mls .[id number] RUDY Administration Norepinephrine Bitartrate 16 250 mls @ 0 mls/hr 11/09/19 03:00 11/09/19 03:11 mg/ Dextrose/Water IVPB 250 mls INF PRN Administration . Protocol Titrate Dexamethasone 6 mg/ Sodium 51.5 mls @ 101.756 mls/hr 11/11/19 09:00 11/11/19 08:33 Chloride IVPB 51.5 mls DAILY RUDY Administration Insulin Human Lispro 0 units 11/09/19 02:28 11/10/19 22:22 Humalog SC 4 unit .MODERATE SLIDING SC PRN Administration Moderate Correctional Scale Levothyroxine Sodium 100 mcg 11/09/19 06:00 11/11/19 05:13 Synthroid PO 100 mcg 0600 RUDY Administration Lorazepam 2 mg 11/09/19 02:57 11/10/19 13:51 Ativan SLOW IVP 12/09/19 02:57 2 mg Q1H PRN Administration Breakthrough agitation Pantoprazole Sodium 40 mg 11/09/19 21:00 11/11/19 08:29 Protonix IVP 40 mg Q12HR RUDY Administration Propofol 1,000 mg 11/09/19 02:57 11/11/19 09:45 Diprivan IV 12/09/19 02:57 1,000 mg INF PRN Administration TO ACHIEVE GOAL RASS Protocol Zinc Sulfate 220 mg 11/09/19 09:00 11/11/19 08:30 Zinc Sulfate PER TUBE 220 mg DAILY RUDY Administration - Exam General Appearance: ill appearing Eye: PERRL, anicteric sclera ENT: no oropharyngeal lesions, moist mucosa Neck: supple, no JVD Heart: RRR, no murmur Respiratory: no wheezes, no rales Gastrointestinal: soft, non-tender, non-distended, normal bowel sounds Extremities: no cyanosis, no edema Neurological: cranial nerve grossly intact, no focal deficits Hosp A/P (1) Acute respiratory failure with hypoxia Code(s): J96.01 - ACUTE RESPIRATORY FAILURE WITH HYPOXIA Status: Acute (2) Pneumonia due to COVID-19 virus Code(s): U07.1 - COVID-19; J12.89 - OTHER VIRAL PNEUMONIA Status: Acute (3) Chronic suprapubic catheter Code(s): Z93.59 - OTHER CYSTOSTOMY STATUS Status: Chronic (4) DM type 2 (diabetes mellitus, type 2) Status: Chronic Qualifiers: Diabetes mellitus penitentiary insulin use: without penitentiary use Diabetes mellitus complication status: with other specified complication Qualified Code (s): E11.69 - Type 2 diabetes mellitus with other specified complication (5) CAD (coronary artery disease) Code(s): I25.10 - ATHSCL HEART DISEASE OF [place] CORONARY ARTERY W/O ANG PCTRS Status: Chronic Qualifiers: Coronary Disease-Associated Artery/Lesion type: [place] artery [place] vs. transplanted heart: [place] heart Associated angina: without angina Qualified Code(s): I25.10 - Atherosclerotic heart disease of [place] coronary artery without angina pectoris (6) Hypothyroidism Code(s): E03.9 - HYPOTHYROIDISM, UNSPECIFIED Status: Chronic Qualifiers: Hypothyroidism type: acquired Qualified Code(s): E03.9 - Hypothyroidism, unspecified (7) HTN (hypertension) Code(s): I10 - ESSENTIAL (PRIMARY) HYPERTENSION Status: Chronic Qualifiers: Hypertension type: essential hypertension Qualified Code(s): I10 - Essential (primary) hypertension - Plan is on remdesivir, dexamethasone and got convalescent plasma x1 nebs, gentle iv hydration, synthroid, zithromax weaning per pulm advice d/w [place] José over phone, gave full updates, she does not want cpr done, to continue vent and see if he can come out of it (11/09/2019) If he is getting worse on the vent she is open for further discussion including hospice etc prognosis guarded likely has underlying rheumatoid arthritis is currently a resident of [facility], not sure if he ambulates with his extreme valgus left knee
[2019-11-11] MEDS: HumaLOG 300 UNITS/3 ML VIAL SC PRN (17:54)
[2019-11-12] MEDS: Lorazepam 2 MG/ML VIAL SLOW IVP PRN ×3 (00:50→13:17)
[2019-11-12 04:33] LABS: #Eosinphils 0.2 thou/uL (0.0-0.7); #Lymphocytes 0.9 thou/uL (1.20-3.40); #Monocytes 0.3 thou/uL (0.11-0.59); #Neutrophils 11.7 thou/uL (1.40-6.50); %Basophils 0.1 % (0.0-1.0); %Eosinophils 1.2 % (0.0-10.0); %Lymphocytes 6.9 % (21.0-51.0); %Monocytes 2.3 % (0.0-10.0); %Neutrophils 89.5 % (42.0-75.0); Hemoglobin 11.4 g/dL (14.0-18.0); Mean Corpuscular HGB CONC 31.9 g/dL (32.0-36.0); Mean Corpuscular Hemoglobin 30.1 pg (27.0-31.0); Mean Corpuscular Volume 94.3 fL (78.0-98.0); Mean Platelet Volume 8.5 fL (7.4-10.4); Platelet Count 242 thou/uL (130-400); RBC Distribution Width 14.2 % (11.5-14.5); Red Blood Cell (RBC) Count 3.78 mill/uL (4.70-6.10); White Blood Cell (WBC) Count 13.1 thou/uL (4.8-10.8)
[2019-11-12 04:54] LABS: ALT (SGPT) 13 U/L (8-55); AST (SGOT) 15 U/L (5-34); Albumin 2.5 g/dL (3.4-4.8); Alkaline Phosphatase 59 U/L (40-110); Anion Gap 11 mmol/L (10-20); BUN (Urea Nitrogen) 38 mg/dL (8.4-25.7); Bilirubin, Total 0.5 mg/dL (0.2-1.2); CRP (Inflammatory) 12.63 mg/dL (= or < 0.5); Calc. Creatinine Clearance 75 mL/min (70-130); Calcium 7.8 mg/dL (7.8-10.44); Carbon Dioxide 21 mmol/L (23-31); Chloride 117 mmol/L (98-107); Estimated GFR-MDRD 82; Globulin 2.9 g/dL (2.4-3.5); Glucose 142 mg/dL (83-110); Potassium 3.3 mmol/L (3.5-5.1); Protein, Total 5.4 g/dL (5.8-8.1); Sodium 146 mmol/L (136-145)
[2019-11-12] MEDS: Levothyroxine Sodium 100 MCG TAB PO SCH (06:38)
[2019-11-12] MEDS ORDERED: Furosemide 20 MG/2 ML VIAL SLOW IVP SCH (07:45)
--- NOTE | 2019-11-12 07:49 | PRG ---
DATE OF SERVICE: 11/12/2019 TIME SPENT: 35 minutes of critical care time. SUBJECTIVE: Mr. Mukherjee continues to do quite poorly. OBJECTIVE: VITAL SIGNS: His temperature is 98.6, pulse 105, blood pressure 150/70, and O2 saturation in the low 90s. NEUROLOGICAL: He is sedated on some propofol. He will not open his eyes or follow commands for me. He does withdraw to pain. His 24-hour intake was 3706, output 1735. HEENT: Pupils are 3 mm and reactive. Sclerae are anicteric. Oropharynx, ET tube in place. NECK: No adenopathy or JVD. LUNGS: Inspiratory crackles. CARDIAC: S1 and S2. Tachycardic. ABDOMEN: Soft and nontender. EXTREMITIES: Edematous. LABORATORY DATA: White blood cell count 13, hematocrit 35.7, and platelet count 242. Sodium 146, potassium 3.3, chloride 117, CO2 of 21, BUN 38, creatinine 0.8, and glucose 142. C-reactive protein 12.6. X-ray continues to show bilateral infiltrates. ABG is not resulted. ASSESSMENT: 1. COVID-19 pneumonia with acute respiratory failure, requiring mechanical ventilation. 2. Metabolic encephalopathy. PLAN: He has had increasing oxygen requirement over the last 24 hours. His C-reactive protein is also gone. In my mind, this indicates that he has worsening despite aggressive treatment and is unlikely to survive. His niece apparently met with Palliative Care yesterday. They discussed DNA order, which was put on, but they did not arrive in the conclusion about withdrawal of care. I personally would support withdrawing care as I do not see any hope for functional recovery. Job ID: [id number]
[2019-11-12] MEDS: Gabapentin 300 MG CAP PO SCH (08:03)
[2019-11-12] MEDS: Ascorbic Acid 500 mg Chewable Tablet PER TUBE SCH (08:03)
[2019-11-12] MEDS: Zinc Sulfate 220 MG CAP PER TUBE SCH (08:03)
[2019-11-12] MEDS: Enoxaparin Sodium 40 MG/0.4 ML SYRINGE SC SCH (08:03)
[2019-11-12] MEDS: Propofol 1,000 MG/100 ML VIAL IV PRN (08:06)
[2019-11-12] MEDS: Budesonide 0.5 MG/2 ML NEB INH SCH (08:30)
[2019-11-12 08:39] VITALS: TEMP 99.2
[2019-11-12 08:53] LABS: Actual Bicarbonate (HCO3a) 19.2 mEq/L (22-28); Base Excess (BEa) -3.5 mEq/L (-2.0 to +3.0); CO2 Tension 28.3 mmHg (35.0-45.0); Calcium, Ionized (arterial) 1.15 mmol/L (1.12-1.30); Carboxyhemoglobin (COHb) 0.9 gm% (0.0-3.0); Hemoglobin (Hb) 13.4 g/dL (14.0-18.0); Potassium - ABG Lab 3.18 mmol/L (3.70-5.30); pH, Arterial 7.45 (7.35-7.45)
[2019-11-12 08:55] LABS: ALV-art Gradient 483.625 (0-20); O2 Tension (PaO2), arterial 51.4 mmHg (> 70.0); Puncture Site RBA
[2019-11-12] MEDS ORDERED: Azithromycin 500 MG in Sodium Chloride 0.9% 250 ML 250 ML IVPB SCH (09:00)
[2019-11-12] MEDS ORDERED: Pantoprazole 40 MG VIAL IVP SCH (09:00)
[2019-11-12] MEDS ORDERED: cefTRIAXone\\ROCEPHIN 2 GM in Sodium Chloride 0.9% 100 ML IVPB SCH (09:00)
[2019-11-12] MEDS: Dexamethasone 6 MG in Sodium Chloride 0.9% 50 ML IVPB SCH (09:05)
[2019-11-12] MEDS: Morphine 2 MG/ML VIAL SLOW IVP PRN ×2 (09:06→13:17)
[2019-11-12] MEDS: HumaLOG 300 UNITS/3 ML VIAL SC PRN (12:52)
[2019-11-12] MEDS ORDERED: Morphine 4 MG/ML VIAL SLOW IVP PRN (13:17)
[2019-11-12] MEDS ORDERED: Lorazepam 2 MG/ML VIAL SLOW IVP PRN (13:18)
--- NOTE | 2019-11-12 13:26 | PDOC.FMACP ---
Advance Care Planning - Problem (1) Palliative care encounter Status: Acute Code(s): Z51.5 - ENCOUNTER FOR PALLIATIVE CARE (2) Pneumonia due to COVID-19 virus Status: Acute Code(s): U07.1 - COVID-19; J12.89 - OTHER VIRAL PNEUMONIA (3) DM type 2 (diabetes mellitus, type 2) Status: Chronic Qualifiers: Diabetes mellitus marine oil terminal superintendent insulin use: without marine oil terminal superintendent use Diabetes mellitus complication status: with other specified complication Qualified Code (s): E11.69 - Type 2 diabetes mellitus with other specified complication (4) Acute respiratory failure with hypoxia Status: Acute Code(s): J96.01 - ACUTE RESPIRATORY FAILURE WITH HYPOXIA (5) HTN (hypertension) Status: Chronic Code(s): I10 - ESSENTIAL (PRIMARY) HYPERTENSION Qualifiers: Hypertension type: essential hypertension Qualified Code(s): I10 - Essential (primary) hypertension - Note Participants: family, surrogate decision-maker, palliative care Summary: Palliative Care has addressed Advanced Care Planning with patient stefanie Perez, designated MPOA. The diagnosis, prognosis and goals of care were discussed. Appropriate forms and documentation to accomplish the goals of care were discussed. All questions were answered. Family has elected to seek no resuscitation measures and are desiring to compassionately extubate secondary to poor meaningful recovery, acting in what they believe would be their uncles wishes. Dr Galloway and Dr Thompson notified. Please also refer to Harsh Rosen RNmannequin mounter notes in note section. Time Spent (mins): 45
--- NOTE | 2019-11-13 08:30 | DIS ---
DATE OF ADMISSION: 11/09/2019 DATE OF DISCHARGE: 11/12/2019 DATE AND TIME OF : 11/12/2019 at 1400 hours. PRIMARY CAUSES OF : Acute respiratory failure with hypoxia secondary to COVID-19 pneumonia, duration is 7 days; metabolic encephalopathy secondary to COVID-19 pneumonia, duration is 7 days. SECONDARY CAUSES OF : Diabetes mellitus type 2, coronary artery disease, history of rheumatoid arthritis, hypothyroidism, hypertension, benign prostatic hypertrophy with chronic suprapubic catheter. BRIEF COURSE DURING HOSPITALIZATION: The patient initially got admitted on the 08 of November after he was transferred from [facility] for hypoxic respiratory failure. He was initially tried on BiPAP, but then required invasive ventilation and was intubated. He has tested positive for COVID-19 pneumonia and was aggressively treated with dexamethasone, Remdesivir, and the patient had 1 unit of convalescent plasma as well. Despite all these aggressive measures, the patient required increasing oxygen on the ventilator. He remained encephalopathic all through his stay. The patient did not show any attempts at weaning. He has had consultation with Dr. Thompson for Pulmonology. Due to poor prognosis, multiple consultations were held with the patient's power of staff attorney, Ms. Ana Kumar, who is power of staff attorney. She mentioned that the patient never wanted to be on the ventilator if he did not have a good chance of recovery. In view of this, the patient was initially made do not attempt to resuscitate, and then Ms. Ana Kumar went for compassionate extubation. This was done this morning. The patient breathed his last at 1400 hours. His body will be released per hospital protocol. Job ID: [id number]
== END 2019-11-12 16:00 | disposition expired | DRG 208 ==
LOC: CCU 00:28
PROVIDERS: ADMIT Family Medicine; ATTEND Family Medicine
PROC: 5A1945Z Respiratory Ventilation, 24-96 Consecutive Hours (ICD-10-PCS; principal; 2019-11-09)
PROC: 30233L1 Transfusion of Nonautologous Fresh Plasma into Peripheral Vein, Percutaneous Approach (ICD-10-PCS; 2019-11-09)
PROC: 30233K1 Transfusion of Nonautologous Frozen Plasma into Peripheral Vein, Percutaneous Approach (ICD-10-PCS; 2019-11-09)
PROC: 8E0ZXY6 Isolation (ICD-10-PCS; 2019-11-09)
PROC: 3E033XZ Introduction of Vasopressor into Peripheral Vein, Percutaneous Approach (ICD-10-PCS; 2019-11-09)
DX: U07.1 COVID-19 (principal); J12.89 Other viral pneumonia; J96.01 Acute respiratory failure with hypoxia; G93.41 Metabolic encephalopathy; Z66 Do not resuscitate; Z51.5 Encounter for palliative care; I25.10 Atherosclerotic heart disease of native coronary artery without angina pectoris; E11.9 Type 2 diabetes mellitus without complications; M06.9 Rheumatoid arthritis, unspecified; E03.9 Hypothyroidism, unspecified; I10 Essential (primary) hypertension; N40.0 Benign prostatic hyperplasia without lower urinary tract symptoms; E55.9 Vitamin D deficiency, unspecified; F32.9 Major depressive disorder, single episode, unspecified; M10.9 Gout, unspecified; K21.9 Gastro-esophageal reflux disease without esophagitis; Z96.642 Presence of left artificial hip joint; I95.9 Hypotension, unspecified; E78.5 Hyperlipidemia, unspecified; Z78.1 Physical restraint status; Z95.0 Presence of cardiac pacemaker; Z79.899 Other long term (current) drug therapy; Z93.59 Other cystostomy status; Z79.890 Hormone replacement therapy; Z79.84 Long term (current) use of oral hypoglycemic drugs
CPT/HCPCS: 36416; 36430; 71045; 80048; 80053; 82728; 82805; 85014; 85018; 85025; 85379; 86140; 86850; 86900; 86901; 94002; 94003; 94640; C9113; J0456; J0696; J1100; J1650; J1940; J2060; J2270; J2704; J3490; J7050; J7070; J7611; J7626; S0028